=== PATIENT | male | born 1945 | race Caucasian/White ===

== ENCOUNTER 2017-12-11 07:52 | Emergency (ER) | payer MEDICARE, BC, OTHER ==
[2017-12-11 07:57] VITALS: BP 145/76; PULSE 70; RESP 16; TEMP 97.5; O2SAT 98
[2017-12-11 08:40] LABS: AUTOMATED NEUTROPHIL # 6.5 TH/MM3 (1.8-7.7); BASOPHIL % 0.5 % (0.0-2.0); EOSINOPHIL # 0.1 TH/MM3 (0-0.4); EOSINOPHIL % 0.9 % (0.0-4.0); HEMATOCRIT 44.5 % (39.0-51.0); HEMOGLOBIN 15.6 GM/DL (13.0-17.0); LYMPHOCYTE # 1.7 TH/MM3 (1.0-4.8); MEAN CELL VOLUME 93.9 FL (80.0-100.0); MEAN CORPUSCULAR HGB CONC 35.1 % (32.0-36.0); MEAN PLATELET VOLUME 8.3 FL (7.0-11.0); MONO % 6.7 % (0.0-8.0); MONOCYTE # 0.6 TH/MM3 (0-0.9); NEUT % 72.9 % (16.0-70.0); PLATELET COUNT 241 TH/MM3 (150-450); RED BLOOD COUNT 4.74 MIL/MM3 (4.50-5.90); RED CELL DISTRIBUTION WIDTH 12.9 % (11.6-17.2)
[2017-12-11 08:45] LABS: BILIRUBIN, URINE NEG (NEG); BLOOD, URINE MOD (NEG); GLUCOSE,URINE NEG (NEG); KETONE, URINE NEG (NEG); MUCUS URINE FEW /lpf (OCC); NITRITE,URINE NEG (NEG); PH, URINE 5.5 (5.0-8.5); URINE COLOR YELLOW (YELLW/STRAW); URINE LEUKOCYTE ESTERASE NEG (NEG)
[2017-12-11 08:48] LABS: BICARBONATE 26.8 MEQ/L (21.0-32.0); CALCIUM 8.7 MG/DL (8.5-10.1); CREATININE 1.37 MG/DL (0.60-1.30)
[2017-12-11] MEDS ORDERED: CARB1TAB52 PO (09:36)
[2017-12-11] MEDS ORDERED: ASPI81CH7 CHEW (09:36)
[2017-12-11] MEDS ORDERED: PRAV40TA2 PO (09:36)
[2017-12-11] MEDS ORDERED: CITA10TA4 PO (09:36)
[2017-12-11 09:40] VITALS: BP 148/74; PULSE 57; RESP 16; O2SAT 100
[2017-12-11] MEDS ORDERED: SODIUM CHLOR 0.9% 1000 ML INJ 1,000 ML IV SCH (10:03)
[2017-12-11] MEDS ORDERED: SODIUM CHLORIDE 0.9% FLUSH 10 ML FLUSH IV FLUSH PRN (10:15)
[2017-12-11] MEDS ORDERED: KETOROLAC TROMETHAMINE 30 MG/ML (IVP) VIAL IVP ONE (10:15)
--- NOTE | 2017-12-11 10:26 | PD ---
HPI Chief Complaint: Flank/Kidney Pain Time Seen by Provider: 09:53 Travel History International Travel<30 days: No Contact w/Intl Traveler<30days: No Traveled to known affect area: No History of Present Illness HPI 72-year-old male presents to the emergency department with complaint of left flank pain since 4 AM this morning. Has history of kidney stones and says the presentation is similar. Reports difficulty urinating, but is able to urinate. Denies hematuria. Denies burning on urination. Reports increased urination. Denies diarrhea. Last had a bowel movement this morning. Denies fever, vomiting. Reports cold sweats. Pain fluctuates in intensity. Rates pain 8/ 10. Describes it as a sharp discomfort. Has not taken any medications or trying treatments to alleviate his symptoms. Denies history of abdominal surgeries. No known aggravating or relieving factors. Pain fluctuates in intensity. Reports rare alcohol use. Primary care provider is Dr. Magaña. No known allergies. History of kidney stones. Denies other significant past medical history. Has no other medical complaints. No other modifying factors or associated signs and symptoms. PFSH Past Medical History Anxiety: Yes High Cholesterol: Yes Neurologic: Yes (essential tremors) Influenza Vaccination: Yes Social History Alcohol Use: Yes (occas) Tobacco Use: No Substance Use: No Allergies-Medications (Allergen,Severity, Reaction): Coded Allergies: No Known Allergies (Unverified , 12/11/17) Reported Meds & Prescriptions Reported Meds & Active Scripts Active Ibuprofen 800 Mg Tab 800 Mg PO Q6HR PRN Percocet (Oxycodone-Acetaminophen) 5-325 mg Tab 1 Tab PO Q4H PRN Zofran Odt (Ondansetron Odt) 4 Mg Tab 4 Mg SL Q8HR PRN Reported Aspirin Children's (Aspirin) 81 Mg Chew 81 Mg CHEW EVERY OTHER DAY Carbidopa 25 Mg Tab Unknown Dose PO TID Citalopram (Citalopram Hydrobromide) 10 Mg Tab 10 Mg PO DAILY Pravastatin 40 Mg Tab 60 Mg PO DAILY Review of Systems Except as stated in HPI: all other systems reviewed are Neg Physical Exam Narrative GENERAL: Well-nourished, well-developed male patient, in no acute distress SKIN: Warm and dry. No rash. HEAD: Atraumatic. Normocephalic. EYES: Pupils equal and round. No scleral icterus. No injection or drainage. ENT: Mucosa pink and moist. NECK: Trachea midline. CARDIOVASCULAR: Regular rate and rhythm. No murmur appreciated. RESPIRATORY: No accessory muscle use. Clear to auscultation. Breath sounds equal bilaterally. GASTROINTESTINAL: Abdomen soft, tenderness to left flank area, nondistended. Hepatic and splenic margins not palpable. Bowel sounds are active 4 quadrants. Bladder nontender and nondistended. Nonrigid. No guarding. MUSCULOSKELETAL: No obvious deformities. No clubbing. No cyanosis. No edema. BACK: No CVA tenderness NEUROLOGICAL: Awake and alert. Oriented 3. No obvious cranial nerve deficits. Motor grossly within normal limits. Normal speech. Moves all extremities. 5/5 strength to all extremities. PSYCHIATRIC: Appropriate mood and affect; insight and judgment normal. Data Data Last Documented VS Vital Signs Date Time Temp Pulse Resp B/P (MAP) Pulse Ox O2 Delivery O2 Flow Rate FiO2 12/11/17 11:16 12/11/17 09:40 57 16 100 Room Air 12/11/17 07:57 97.5 Orders Orders Complete Blood Count With Diff (12/11/17 07:59) Basic Metabolic Panel (Bmp) (12/11/17 07:59) Urinalysis - C+S If Indicated (12/11/17 07:59) Hepatic Functional Panel (12/11/17 10:03) Lipase (12/11/17 10:03) Ct Abd/Pel W/O Iv Contrast (12/11/17 10:03) Sodium Chlor 0.9% 1000 Ml Inj (Ns 1000 M (12/11/17 10:03) Sodium Chloride 0.9% Flush (Ns Flush) (12/11/17 10:15) Ketorolac Inj (Toradol Inj) (12/11/17 10:15) Ed Discharge Order (12/11/17 11:10) Oxycodone-Acetamin 5-325 Mg (Percocet (12/11/17 11:30) Labs Laboratory Tests Test 12/11/17 08:08 White Blood Count 9.0 TH/MM3 Red Blood Count 4.74 MIL/MM3 Hemoglobin 15.6 GM/DL Hematocrit 44.5 % Mean Corpuscular Volume 93.9 FL Mean Corpuscular Hemoglobin 33.0 PG Mean Corpuscular Hemoglobin Concent 35.1 % Red Cell Distribution Width 12.9 % Platelet Count 241 TH/MM3 Mean Platelet Volume 8.3 FL Neutrophils (%) (Auto) 72.9 % Lymphocytes (%) (Auto) 19.0 % Monocytes (%) (Auto) 6.7 % Eosinophils (%) (Auto) 0.9 % Basophils (%) (Auto) 0.5 % Neutrophils # (Auto) 6.5 TH/MM3 Lymphocytes # (Auto) 1.7 TH/MM3 Monocytes # (Auto) 0.6 TH/MM3 Eosinophils # (Auto) 0.1 TH/MM3 Basophils # (Auto) 0.0 TH/MM3 CBC Comment DIFF FINAL Differential Comment Urine Color YELLOW Urine Turbidity CLEAR Urine pH 5.5 Urine Specific [place]gins 1.022 Urine Protein TRACE mg/dL Urine Glucose (UA) NEG mg/dL Urine Ketones NEG mg/dL Urine Occult Blood MOD Urine Nitrite NEG Urine Bilirubin NEG Urine Urobilinogen LESS THAN 2.0 MG/DL Urine Leukocyte Esterase NEG Urine RBC /hpf Urine WBC 1 /hpf Urine Mucus FEW /lpf Microscopic Urinalysis Comment CULT NOT INDICATED Blood Urea Nitrogen 21 MG/DL Creatinine 1.37 MG/DL Random Glucose 209 MG/DL Calcium Level 8.7 MG/DL Sodium Level 140 MEQ/L Potassium Level 4.4 MEQ/L Chloride Level 106 MEQ/L Carbon Dioxide Level 26.8 MEQ/L Anion Gap 7 MEQ/L Estimat Glomerular Filtration Rate 51 ML/MIN Total Bilirubin 0.4 MG/DL Direct Bilirubin 0.1 MG/DL Indirect Bilirubin 0.3 MG/DL Aspartate Amino Transf (AST/SGOT) 18 U/L Alanine Aminotransferase (ALT/SGPT) 19 U/L Alkaline Phosphatase 94 U/L Total Protein 7.3 GM/DL Albumin 3.8 GM/DL Lipase 161 U/L [facility] Medical Decision Making Medical Screen Exam Complete: Yes Emergency Medical Condition: Yes Medical Record Reviewed: Yes Differential Diagnosis Kidney stone, diverticulitis, pyelonephritis, flank pain Narrative Course 72-year-old male with pain to his left flank and is reproducible on physical exam. No CVA tenderness. Has history of kidney stones. Denies history of diverticulitis. Patient is afebrile and nontoxic-appearing. Denies fever, vomiting. CBC, BMP, urinalysis ordered in triage. LFTs, lipase, CT abdomen/ pelvis, IV, normal saline bolus, Toradol ordered. CBC unremarkable. BUN 21, creatinine 1.37. Glucose 209. Patient denies history of diabetes. GFR 51. Otherwise, BMP unremarkable. Urinalysis unremarkable. 1059: CT abdomen/pelvis conclude: There is a tiny 3 mm stone in the proximal to mid left ureter causing hydronephrosis of the left collecting system; 2. There is a tiny nonobstructing stone in the lower pole of the right kidney. Patient provided a copy of the CT report. Findings discussed with Dr. Mckeon and he agrees with discharge. Ibuprofen, Percocet, Zofran prescribed for home. Percocet was administered prior to discharge. Instructed patient to follow-up with urologist as needed. Instructed patient to follow up with primary care provider. Patient verbalizes understanding and agreement with treatment plan. Patient is medically cleared and stable for discharge. Discussed reasons to return to the emergency department. Patient agrees with treatment plan. The patients vital signs are stable and the patient is stable for outpatient follow- up and treatment. Patient discharged home, stable and in no acute distress. Diagnosis Primary Impression: Kidney stone Referrals: Primary Care Physician Urologist Patient Instructions: General Instructions, Kidney Stones (ED) Additional Instructions: Ibuprofen as needed and as directed to reduce pain Drink plenty of fluids Follow-up with primary care provider Follow-up with urology as needed Return to the emergency department immediately with worsening of symptoms Med/Other Pt SpecificInfo: Prescription(s) given, No Change to Meds Scripts Ibuprofen (Ibuprofen) 800 Mg Tab 800 MG PO Q6HR Y for PAIN, #30 TAB 0 Refills Prov: Anna Shepherd 12/11/17 Oxycodone-Acetaminophen (Percocet) 5-325 mg Tab 1 TAB PO Q4H Y for PAIN, #12 TAB 0 Refills Prov: Anna Shepherd 12/11/17 Ondansetron Odt (Zofran Odt) 4 Mg Tab 4 MG SL Q8HR Y for Nausea/Vomiting, #6 TAB 0 Refills Prov: Anna Shepherd 12/11/17 Disposition: 01 DISCHARGE HOME Condition: Stable Anna Shepherd Dec 11, 2017 10:26
--- NOTE | 2017-12-11 10:57 | RADRPT ---
EXAM DATE/TIME: 12/11/2017 10:44 [facility] COMPARISON: No previous studies available for comparison. INDICATIONS : Left flank pain. ORAL CONTRAST: No oral contrast ingested. RADIATION DOSE: 8.30 CTDIvol (mGy) MEDICAL HISTORY : Renal calculi. SURGICAL HISTORY : None. ENCOUNTER: Initial ACUITY: 1 day PAIN SCALE: 6/10 LOCATION: Left flank TECHNIQUE: Volumetric scanning of the abdomen and pelvis was performed. Using automated exposure control and ad justment of the mA and/or kV according to patient size, radiation dose was kept as low as reasonably achievable to obtain optimal diagnostic quality images. DICOM format image data is available electro nically for review and comparison. The lack of IV contrast limits the diagnosis for certain organ pat hology. FINDINGS: LOWER LUNGS: The visualized lower lungs are clear. LIVER: Homogeneous density without lesion. There is no dilation of the biliary tree. No calcified gallston es. SPLEEN: Normal size without lesion. PANCREAS: Within normal limits. KIDNEYS: There is no evidence of hydronephrosis the right kidney. There is a tiny 2 mm stone lower pole right kidney not causing obstruction. There is some mild to moderate hydronephrosis of the left collecting system. There is a 3 mm stone in the proximal to mid left ureter. ADRENAL GLANDS: Within normal limits. VASCULAR: There is no aortic aneurysm. BOWEL/MESENTERY: The stomach, small bowel, and colon demonstrate no acute abnormality. There is no free intraperitone al air or fluid. No inflammatory changes. There is stool throughout colon. ABDOMINAL WALL: Within normal limits. RETROPERITONEUM: There is no lymphadenopathy. BLADDER: No wall thickening or mass. REPRODUCTIVE: The prostate gland measures 5.2 x 4.3 cm. INGUINAL: There is no lymphadenopathy or hernia. MUSCULOSKELETAL: Within normal limits for patient age. CONCLUSION: 1. There is a tiny 3 mm stone in the proximal to mid left ureter causing hydronephrosis of the left c ollecting system. 2. There is a tiny nonobstructing stone in the lower pole of the right kidney. Parmjit Chino MD on December 11, 2017 at 10:51 Board Certified Radiologist. This report was verified electronically.
[2017-12-11] MEDS ORDERED: IBUP1TAB7 PO (11:10)
[2017-12-11] MEDS ORDERED: PERC5TAB12 PO (11:10)
[2017-12-11] MEDS ORDERED: ZOFR4TAB3 SL (11:10)
[2017-12-11] MEDS ORDERED: oxyCODONE/ACETAMINOPHEN 5 MG/325 MG TAB PO ONE (11:30)
[2017-12-11 16:14] LABS: ALBUMIN 3.8 GM/DL (3.4-5.0); DIRECT BILIRUBIN ADULT 0.1 MG/DL (0.0-0.2)
[2017-12-11 16:17] LABS: INDIRECT BILIRUBIN 0.3 MG/DL (0.0-0.8); TOTAL BILIRUBIN ADULT 0.4 MG/DL (0.2-1.0); TOTAL PROTEIN 7.3 GM/DL (6.4-8.2)
== END 2017-12-11 11:33 | disposition home or self-care (01) ==
LOC: NEPD 07:52 → EDBD 07:52 → NEPD 11:33
DX: N13.2 Hydronephrosis with renal and ureteral calculous obstruction (principal); E78.00 Pure hypercholesterolemia, unspecified
CPT/HCPCS: 74176; 80048; 80076; 81001; 83690; 85025; 96361; 96374; 99284; J1885; J7030